=== PATIENT | male | born 1990 | race African-American/Black ===

== ENCOUNTER 2020-10-03 10:36 | Emergency (ER) | payer OTHER ==
[~2020-10-03] VITALS: Ht 182.9 cm; Wt 78.0 kg
[2020-10-03] MEDS ORDERED: ONDANSETRON HCL 4MG/2ML INJ IV STA (11:07)
[2020-10-03] MEDS ORDERED: KETOROLAC 30MG/ML VIAL IV STA (11:07)
[2020-10-03] MEDS ORDERED: SODIUM CHLORIDE 0.9% 1,000 ML IV ONE (11:15)
[2020-10-03 11:41] LABS: CHLORIDE 110 mEq/L (98-107)
[2020-10-03 11:45] LABS: ETHANOL BLOOD < 10 mg/dL
[2020-10-03 11:46] LABS: BASOPHILS % 0.5 % (0.0-2.0); EOSINOPHILS % 0.8 % (0.0-5.0); HEMATOCRIT. 49.4 % (42.0-52.0); HEMOGLOBIN. 16.6 g/dL (14.0-18.0); LYMPHOCYTES % 12.3 % (20.0-50.0); MEAN CORPUSCULAR HEMOGLOBIN 30.7 pg (28.0-32.0); MEAN CORPUSCULAR VOLUME 91.6 fL (80.0-94.0); MEAN PLATELET VOLUME 8.4 fl (7.4-10.4); MONOCYTES % 5.5 % (2.0-8.0); NEUTROPHILS % 80.9 % (40.0-76.0); PLATELET 184 x1000/uL (130-400); RED BLOOD CELL COUNT 5.39 mill/uL (4.7-6.1); RED CELL DISTRIBUTION WIDTH 13.4 % (11.6-14.6)
[2020-10-03 12:50] LABS: CLARITY URINE CLEAR (CLEAR); COLOR URINE YELLOW (YELLOW); KETONES URINE NEGATIVE (NEGATIVE); LEUKOCYTE ESTERASE URINE NEGATIVE (NEGATIVE); NITRITE URINE NEGATIVE (NEGATIVE); OCCULT BLOOD URINE NEGATIVE (NEGATIVE); PH URINE 8.5 (4.5-8.0); PROTEIN URINE 1+ (NEGATIVE); SPECIFIC GRAVITY URINE 1.017 (1.005-1.030); UROBILINOGEN URINE 0.2 E.U./dL (0.2-1.0)
[2020-10-03 14:18] LABS: *AMPHETAMINES SCREEN URINE NEGATIVE (NEGATIVE)
[2020-10-03 14:20] LABS: CANNABINOID URINE SCREEN PRESUMTIVE POSITIVE (NEGATIVE); OPIATES URINE SCREEN NEGATIVE (NEGATIVE)
[2020-10-03 14:24] LABS: *BARBITURATES SCREEN URINE NEGATIVE (NEGATIVE); *BENZODIAZEPINES SCREEN URINE NEGATIVE (NEGATIVE); *COCAINE SCREEN URINE NEGATIVE (NEGATIVE)
[2020-10-03 14:26] LABS: METHADONE URINE SCREEN NEGATIVE (NEGATIVE); PHENCYCLIDINE URINE SCREEN NEGATIVE (NEGATIVE)
[2020-10-03] MEDS ORDERED: MAGNESIUM/ALUMINUM HYDROXIDE/SIMETHICONE 30ML UDC PO STA (14:29)
[2020-10-03] MEDS ORDERED: DICYCLOMINE 10 MG/5 ML ORAL SYR PO STA (14:29)
[2020-10-03 14:52] VITALS: BP 122/76
== END 2020-10-03 14:53 | disposition home or self-care (01) ==
LOC: ER 10:58
DX: R10.9 Unspecified abdominal pain (principal)
CPT/HCPCS: 36415; 74176; 80053; 80305; 80320; 81003; 83690; 85025; 93005; 96361; 96374; 96375; 99285; J1885; J2405; J7030; Z7610; G0480